=== PATIENT | male | born 2000 | race Caucasian/White ===

== ENCOUNTER 2023-01-03 08:40 | Emergency (ER) | payer MEDICAID ==
[~2023-01-03] VITALS: Ht 172.7 cm; Wt 81.8 kg
[2023-01-03] MEDS ORDERED: AMOXICILLIN 8751 TAB PO (10:41)
[2023-01-03] MEDS ORDERED: NORCO 325 MG-51 TAB PO (10:42)
[2023-01-03 10:52] VITALS: BP 128/81; PULSE 60; TEMP 98
== END 2023-01-03 10:54 | disposition home or self-care (01) ==
LOC: COL.ER 08:40
DX: L72.8 Other follicular cysts of the skin and subcutaneous tissue (principal)